=== PATIENT | female | born 1965 | race Two or more races ===

== ENCOUNTER 2021-01-14 07:00 | Day surgery (SDC) | payer OTHER ==
[~2021-01-14 07:00] MED LIST: CHLORTHALIDONE PO; TERAZOSIN HCL2 M1 PO; TOPROL XL50 M1 PO
[2021-01-14] MEDS ORDERED: IBU800 MG PO (09:44)
== END 2021-01-14 15:25 | disposition home or self-care (01) ==
LOC: CIR.AMB 07:00
PROVIDERS: ATTEND Obstetrics & Gynecology Gynecology
DX: N84.1 Polyp of cervix uteri (principal); N84.0 Polyp of corpus uteri; Z20.822 Contact with and (suspected) exposure to COVID-19

== ENCOUNTER 2025-04-03 06:00 | Day surgery (SDC) | payer OTHER ==
[2025-03-27 11:41] VITALS: BP 120/78
[~2025-04-03] VITALS: Ht 170.2 cm; Wt 104.3 kg
[~2025-04-03 06:00] MED LIST changes: +IBU800 MG PO; +ZESTRIL5 MG PO
[2025-04-03] MEDS ORDERED: POVIDONE-IODINE 118 ML BOTT TOP ONE (08:00)
[2025-04-03] MEDS ORDERED: IBU600 MG PO (08:30)
== END 2025-04-03 12:30 | disposition home or self-care (01) ==
LOC: CIR.AMB 06:00
PROVIDERS: ATTEND Obstetrics & Gynecology Gynecology
DX: N84.0 Polyp of corpus uteri (principal); N72 Inflammatory disease of cervix uteri; N95.0 Postmenopausal bleeding